=== PATIENT | female | born 1990 | race Caucasian/White ===

== ENCOUNTER 2017-06-01 20:02 | Emergency (ER) | payer OTHER ==
[2017-06-01 20:26] VITALS: BP 122/79; PULSE 82; TEMP 98.2; BMI 43.9
[2017-06-01] MEDS ORDERED: IBUPROFEN 600 MG TABLET (FP) PO ONE ×2 (21:30→21:32)
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
== END 2017-06-01 23:29 | disposition home or self-care (01) ==
LOC: SUPCPDRO 20:02 → JER 20:02
DX: M54.2 Cervicalgia (principal); M25.511 Pain in right shoulder; M25.512 Pain in left shoulder; V43.62XA Car passenger injured in collision with other type car in traffic accident, initial encounter; Y92.414 Local residential or business street as the place of occurrence of the external cause; Y93.89 Activity, other specified
CPT/HCPCS: 84703; 99281-25

== ENCOUNTER 2018-02-14 09:46 | Emergency (ER) | payer OTHER ==
[2018-02-14 09:55] VITALS: TEMP 98.3; BMI 45.8
--- NOTE | 2018-02-14 10:20 | PDOC ---
History of Present Illness - General Chief Complaint: Pain Stated Complaint: ABD PAIN, VOMITING Time Seen by Provider: 02/14/18 09:56 History Source: Patient Exam Limitations: No Limitations - History of Present Illness Initial Comments: 02/14/18 10:39 Patient is a 27-year-old female with no past medical history, who presents emergency department today with 1 week of lower abdominal pain. Patient states that her pain has been mostly in the left lower and right lower quadrants. She states that the pain is intermittently sharp. Patient admits to vomiting this morning. She states that she has also felt nauseous over the past week. She has not taken any medications to help her symptoms. Last menstrual cycle finished on 02/05/18. Patient is sexually active with one partner and does not use protection (condoms or control). Denies STD history. Patient states she took 2 tests yesterday at home which were negative. Denies fevers, chills, recent illness, recent travel, recent antibiotic use, chest pain, palpitations, shortness of breath, difficulty breathing, diarrhea, constipation , frequency, urgency and hematuria. Past History - Travel Traveled outside of the country in the last 30 days: No Close contact w/someone who was outside of country & ill: No - Past Medical History Allergies/Adverse Reactions: Allergies Allergy/AdvReac Type Severity Reaction Status Date / Time No Known Allergies Allergy Verified 02/14/18 09:53 Home Medications: Ambulatory Orders Ondansetron [Zofran Odt -] 4 mg SL TID #10 od.tablet 02/14/18 COPD: No - Reproductive History (#): 1 Para: 1 - Immunization History Immunization Up to Date: No - Suicide/Smoking/Psychosocial Hx Smoking History: Never smoked Have you smoked in the past 12 months: No Number of Cigarettes Smoked Daily: 0 Information on smoking cessation initiated: No Hx Alcohol Use: No Drug/Substance Use Hx: No Substance Use Type: Alcohol Review of Systems - Review of Systems Able to Perform ROS?: Yes Comments:: 02/14/18 10:38 CONSTITUTIONAL: Absent: fever, chills, diaphoresis, generalized weakness, malaise, loss of appetite HEENT: Absent: rhinorrhea, nasal congestion, throat pain, throat swelling, difficulty swallowing, mouth swelling, ear pain, eye pain, visual Changes CARDIOVASCULAR: Absent: chest pain, loss of consciousness, palpitations, irregular heart rate, peripheral edema RESPIRATORY: Absent: cough, shortness of breath, dyspnea with exertion, orthopnea, wheezing, stridor, hemoptysis GASTROINTESTINAL: Present: lower abdominal pain, nausea, vomiting. Absent: abdominal distension, diarrhea, constipation, melena, hematochezia GENITOURINARY: Present: frequency Absent: dysuria, urgency, hesitancy, hematuria, flank pain, genital pain MUSCULOSKELETAL: Absent: myalgia, arthralgia, joint swelling SKIN: Absent: rash, itching, pallor HEMATOLOGIC/IMMUNOLOGIC: Absent: easy bleeding, easy bruising, lymphadenopathy, frequent infections ENDOCRINE: Absent: unexplained weight gain, unexplained weight loss, heat intolerance, cold intolerance NEUROLOGIC: Absent: headache, focal weakness or paresthesias, dizziness, unsteady gait, seizure, mental status changes, bladder or bowel incontinence PSYCHIATRIC: Absent: anxiety, depression, suicidal or homicidal ideation, hallucinations. Is the patient limited Armenian proficient: No *Physical Exam - Vital Signs Last Vital Signs Temp Pulse Resp BP Pulse Ox 98.3 F 86 18 132/72 100 02/14/18 09:53 02/14/18 09:53 02/14/18 09:53 02/14/18 09:53 02/14/18 09:53 - Physical Exam Comments: 02/14/18 10:38 GENERAL: Well developed, well nourished. Awake and alert. No acute distress. Sitting comfortably in exam bed, breathing easily. HEENT: Normocephalic, atraumatic. PERRLA, EOMI. No conjunctival pallor. Sclera are non- icteric. Moist mucous membranes. Oropharynx is clear. NECK: Supple. Full ROM. No JVD. Carotid pulses 2+ and symmetric, without bruits. No thyromegaly. No lymphadenopathy. CARDIOVASCULAR: Regular rate and rhythm. No murmurs, rubs, or gallops. Distal pulses are 2+ and symmetric. PULMONARY: No evidence of respiratory distress. Lungs clear to auscultation bilaterally. No wheezing, rales or rhonchi. ABDOMINAL: Soft. Non-tender. Non-distended. No rebound or guarding. No Rovsing/conti's signs. No organomegaly. Normoactive bowel sounds. : External: No lesions or rashes noted. Normal appearing external genatalia. Bimanual exam: (+) CMT, b/l adenexal tenderness. Scant clear odorless discharge noted MUSCULOSKELETAL Normal range of motion at all joints. No bony deformities or tenderness. No CVA tenderness. EXTREMITIES: No cyanosis. No clubbing. No edema. No calf tenderness. SKIN: Warm and dry. Normal capillary refill. No rashes. No jaundice. NEUROLOGICAL: Alert, awake, appropriate. Cranial nerves 2-12 intact. No deficits to light touch and temperature in face, upper extremities and lower extremities. No motor deficits in the in face, upper extremities and lower extremities. Normoreflexic in the upper and lower extremities. Normal speech. Toes are down- going bilaterally. Gait is normal without ataxia. PSYCHIATRIC: Cooperative. Good eye contact. Appropriate mood and affect. 02/14/18 11:13 ED Treatment Course - LABORATORY CBC & Chemistry Diagram: 02/14/18 10:42 02/14/18 10:42 Medical Decision Making - Medical Decision Making 02/14/18 10:43 Patient is a 27-year-old female with no past medical history who presents emergency department today with lower abdominal pain for one week. Abdominal exam is unremarkable at this time. Abdomen is soft nontender with no reproducible tenderness, negative Rovsing and Conti signs. Slight suprapubic tenderness. Differential diagnosis includes but is not limited to ovarian cysts , PID, , UTI, viral illness. Less likely appendicitis or colitis at this time given lack of abdominal findings and fevers. Plan as follows: 1.basic labs, urine 2.IV fluids, Zofran, Pepcid 3.Transvaginal US 4.reevaluate 02/14/18 12:48 Ultrasound shows small simple cysts on ovaries bilaterally. No evidence of ovarian torsion or complex hemorrhagic cyst. Blood work is within normal limits. No leukocytosis or left shift. 3+ leukocytes on UA however sample appears to be contaminated with a large amount of epithelial cells. Negative preg. Given cervical motion tenderness on exam we'll prophylactically treat the patient for PID at this time. Patient received azithromycin and ceftriaxone. Return precautions given. 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 Patient presents all discharge instructions and all questions were answered. *DC/Admit/Observation/Transfer Diagnosis at time of Disposition: Pelvic pain - Discharge Dispostion Disposition: HOME Condition at time of disposition: Stable Admit: No - Prescriptions Prescriptions: Ondansetron [Zofran Odt -] 4 mg SL TID #10 od.tablet - Referrals Referrals: Estela Aguilar MD [Staff Physician] - - Patient Instructions Printed Discharge Instructions: DI for Pelvic Pain Additional Instructions: Your blood work and urine was normal today. Your not . Her ultrasound showed some simple cysts however this is most likely not the cause of your pain. Your treated prophylactically for gonorrhea and chlamydia today. Please take Zofran every 8 hours as needed for nausea. 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 If you do not have one a referral has been provided for you. Return to the emergency department if you have worsening pain, nausea, vomiting , fevers, chills, lightheadedness, dizziness, or any changes in your symptoms. - Post Discharge Activity Forms/Work/School Notes: Back to Work
[2018-02-14] MEDS ORDERED: SODIUM CHLORIDE 1,000 ML IV STA (10:21)
[2018-02-14] MEDS ORDERED: ONDANSETRON 4 MG/2 ML VIAL IVPUSH ONE (10:21)
[2018-02-14] MEDS ORDERED: FAMOTIDINE IV 20 MG/12 ML VIAL IVPB ONE (10:22)
[2018-02-14] MEDS ORDERED: ONDANSETRON 4 MG/2 ML VIAL ONE (10:26)
[2018-02-14] MEDS ORDERED: FAMOTIDINE 20 MG/50 ML IVPB 20 MG/50 ML MG IVPB ONE (10:26)
[2018-02-14 10:48] LABS: BASO % 0.6 % (0-2.0); EOS % 1.1 % (0-4.5); HEMATOCRIT 38.5 % (32.4-45.2); HEMOGLOBIN 12.7 GM/dL (10.7-15.3); LYMPH % 21.5 % (8-40); MCH 25.8 pg (25.7-33.7); MCHC 32.9 g/dl (32.0-36.0); MEAN CELL VOLUME 78.4 fl (80-96); MEAN PLT VOLUME 7.8 fl (7.5-11.1); MONO % 4.8 % (3.8-10.2); PLATELET COUNT 393 K/MM3 (134-434); RBC 4.91 M/mm3 (3.60-5.2); RDW 15.7 % (11.6-15.6); WHITE BLOOD COUNT 10.1 K/mm3 (4.0-10.0)
[2018-02-14 10:49] LABS: URINE APPEARANCE CLOUDY; URINE BILIRUBIN NEGATIVE (<2.0 mg/dL); URINE BLOOD NEGATIVE (NEGATIVE); URINE COLOR YELLOW; URINE GLUCOSE (UA) NEGATIVE (NEGATIVE); URINE KETONE NEGATIVE (NEGATIVE); URINE NITRITE NEGATIVE (NEGATIVE); URINE PROTEIN NEGATIVE (NEGATIVE); URINE UROBILINOGEN NEGATIVE mg/dL (0.2-1.0)
[2018-02-14 10:50] LABS: URINE LEUK ESTERASE 3+ (NEGATIVE)
[2018-02-14 11:03] LABS: INR 1.12 (0.82-1.09); PROTHROMBIN TIME (PATIENT) 12.6 SEC (9.98-11.88)
[2018-02-14] MEDS ORDERED: METOCLOPRAMIDE HCL INJECTION 10 MG/2 ML VIAL IVPB ONE (11:05)
[2018-02-14 11:09] LABS: EPI CELLS MANY /HPF (FEW); URINE BACTERIA RARE /hpf (NONE SEEN); URINE MUCUS RARE
[2018-02-14] MEDS ORDERED: METOCLOPRAMIDE HCL INJECTION 10 MG/2 ML VIAL ONE (11:09)
[2018-02-14 11:16] LABS: ALBUMIN 3.4 g/dl (3.4-5.0); ANION GAP 9 (8-16); BILIRUBIN,TOTAL 0.3 mg/dL (0.2-1.0); BLOOD UREA NITROGEN 8 mg/dL (7-18); CALCIUM 8.8 mg/dL (8.5-10.1); CHLORIDE 104 mmol/L (98-107); CO2 26 mmol/L (21-32); CREATININE 0.7 mg/dL (0.55-1.02); GLUCOSE,RANDOM 100 mg/dL (74-106); POTASSIUM 3.7 mmol/L (3.5-5.1); SGOT/AST 13 U/L (15-37); SGPT/ALT 17 U/L (12-78); SODIUM 139 mmol/L (136-145); TOT PROT 7.4 g/dl (6.4-8.2)
[2018-02-14 11:17] LABS: ALK PHOS 92 U/L (45-117)
[2018-02-14 11:34] LABS: LIPASE 85 U/L (73-393)
[2018-02-14] MEDS ORDERED: AZITHROMYCIN 500 MG TABLET PO ONE (13:23)
[2018-02-14] MEDS ORDERED: LIDOCAINE HCL 1%, 10 MG/ML (20ML VIAL) ONE (13:33)
[2018-02-14] MEDS ORDERED: AZITHROMYCIN 250 MG TABLET ONE (13:33)
[2018-02-14] MEDS ORDERED: cefTRIAXone SODIUM 1 GM VIAL ONE (13:33)
[2018-02-14 14:36] VITALS: BP 123/78; PULSE 77
== END 2018-02-14 14:00 | disposition home or self-care (01) ==
LOC: JER 09:46
PROC: 3E02329 Introduction of Other Anti-infective into Muscle, Percutaneous Approach (ICD-10-PCS; principal; 2018-02-14)
PROC: 3E0337Z Introduction of Electrolytic and Water Balance Substance into Peripheral Vein, Percutaneous Approach (ICD-10-PCS; 2018-02-14)
PROC: 3E033GC Introduction of Other Therapeutic Substance into Peripheral Vein, Percutaneous Approach (ICD-10-PCS; 2018-02-14)
PROC: 3E033GC Introduction of Other Therapeutic Substance into Peripheral Vein, Percutaneous Approach (ICD-10-PCS; 2018-02-14)
PROC: 3E033GC Introduction of Other Therapeutic Substance into Peripheral Vein, Percutaneous Approach (ICD-10-PCS; 2018-02-14)
DX: N73.8 Other specified female pelvic inflammatory diseases (principal)
CPT/HCPCS: 36415; 76830-TC; 80053; 81003; 81015; 83690; 84703; 85025; 85610; 87086; 87491; 87591; 96361; 96365; 96372; 96375; 99284-25; J7030

== ENCOUNTER 2019-12-04 21:52 | Emergency (ER) | payer OTHER ==
--- NOTE | 2019-12-04 22:46 | PDOC ---
History of Present Illness - General Stated Complaint: BLEEDING Time Seen by Provider: 12/04/19 22:45 History Source: Patient Exam Limitations: No Limitations Past History - Past Medical History Allergies/Adverse Reactions: Allergies Allergy/AdvReac Type Severity Reaction Status Date / Time No Known Allergies Allergy Verified 06/11/18 13:01 Home Medications: Ambulatory Orders Acetaminophen [Tylenol] 325 mg PO BID #10 capsule 06/11/18 Meclizine HCl 25 mg PO BID #8 tablet 06/11/18 COPD: No - Reproductive History (#): 1 Para: 1 - Immunization History Immunization Up to Date: No - Psycho Social/Smoking Cessation Hx Smoking History: Never smoked Have you smoked in the past 12 months: No Number of Cigarettes Smoked Daily: 0 Hx Alcohol Use: No Drug/Substance Use Hx: No Substance Use Type: Alcohol
[2019-12-04 23:04] VITALS: BP 126/72; PULSE 105; TEMP 98.1; BMI 47.9
--- NOTE | 2019-12-04 23:26 | PDOC ---
History of Present Illness - General Chief Complaint: Vaginal Bleeding Stated Complaint: BLEEDING Time Seen by Provider: 12/04/19 22:45 - History of Present Illness Initial Comments: 12/04/19 23:15 HPI: 29 y/o F 6-7 weeks gestation by LMP 10/22/19 presenting with painless vaginal bleeding that started 1.5hrs prior to arrival. She stated it started after wiping when using the toilet. Noted a single small clot. Since then she has noted blood only when wiping similar to her menstrual cycles; denies soaking through pad, underwear, or pants. Denies any pelvic/chest/abdominal/ back pain, LH, MARTINEZ, n/v, SOB, palpitations, dysuria. Established care with Can Maker 4 days ago where pelvic exam was performed and everything was normal. Has not started vitamins. PMHx: as noted above ROS: as noted SHx: Denies tobacco use; no alcohol use; no rec drugs Allergies: NKDA ROS: GENERAL/CONSTITUTIONAL: No fever or chills. No weakness. HEAD, EYES, EARS, NOSE AND THROAT: No change in vision. No ear pain or discharge. No sore throat. CARDIOVASCULAR: No chest pain or shortness of breath RESPIRATORY: No cough, wheezing, or hemoptysis. GASTROINTESTINAL: No nausea, vomiting, diarrhea or constipation. GENITOURINARY: No dysuria, frequency, or change in urination. MUSCULOSKELETAL: No joint or muscle swelling or pain. No neck or back pain. SKIN: No rash NEUROLOGIC: No headache, vertigo, loss of consciousness, or change in strength/ sensation. ENDOCRINE: No increased thirst. No abnormal weight change HEMATOLOGIC/LYMPHATIC: No anemia, easy bleeding, or history of blood clots. ALLERGIC/IMMUNOLOGIC: No hives or skin allergy. PE: GENERAL: Awake, alert, and fully oriented, no acute distress HEAD: No signs of trauma, normocephalic, atraumatic EYES: EOMI, sclera anicteric, conjunctiva clear ENT: Auricles normal inspection, hearing grossly normal, nares patent, oropharynx clear without exudates. Moist mucosa NECK: Normal ROM, no lymphadenopathy LUNGS: No increased work of breathing, symmetrical chest rise, clear to auscultation bilaterally, no wheezes, crackles or rhonchi HEART: Regular rate, regular rhythm, normal S1 and S2, no murmur, peripheral pulses 2+ and equal bilaterally. ABDOMEN: Soft, nondistended, nontender, normoactive bowel sounds. No guarding, no rebound. No masses. No CVAT MUSCULOSKELETAL: FROM NEUROLOGICAL: Cranial nerves II through XII grossly intact. Normal speech, normal gait, no focal sensorimotor deficits SKIN: Warm, Dry, normal turgor, no rashes or lesions noted Past History - Past Medical History Allergies/Adverse Reactions: Allergies Allergy/AdvReac Type Severity Reaction Status Date / Time No Known Allergies Allergy Verified 12/04/19 23:04 Home Medications: Ambulatory Orders Acetaminophen [Tylenol] 325 mg PO BID #10 capsule 06/11/18 Meclizine HCl 25 mg PO BID #8 tablet 06/11/18 COPD: No - Reproductive History (#): 1 Para: 1 - Immunization History Immunization Up to Date: No - Psycho Social/Smoking Cessation Hx Smoking History: Never smoked Have you smoked in the past 12 months: No Number of Cigarettes Smoked Daily: 0 Hx Alcohol Use: No Drug/Substance Use Hx: No Substance Use Type: Alcohol *Physical Exam - Vital Signs Last Vital Signs Temp Pulse Resp BP Pulse Ox 98.1 F 105 H 18 126/72 98 12/04/19 22:58 12/04/19 22:58 12/04/19 22:58 12/04/19 22:58 12/04/19 22:58 ED Treatment Course - RADIOLOGY Radiology Studies Ordered: Category Date Time Status TRANSVAGINAL US PREG [US] Stat Ultrasound 12/04/19 23:06 Ordered Medical Decision Making - Medical Decision Making 12/04/19 23:33 29 y/o F 6-7 weeks gestation by LMP 10/22/19 presenting with painless minimal vaginal bleeding that started 1.5hrs prior to arrival. VSS, AF. PE unremarkable. Pelvic exam deferred at this time given previously performed 4 days ago with [facility] without abnormalities as well as minimal bleeding today without any new pain or cramping. -t&s, beta hcg quant -tvus 12/04/19 23:35 will sign out to night team to followup labs and tvus; dispo appropriately Discharge - Discharge Information Problems reviewed: Yes Clinical Impression/Diagnosis: Vaginal bleeding affecting early Condition: Fair - Follow up/Referral - Patient Discharge Instructions Patient Printed Discharge Instructions: DI for Vaginal Bleeding During Additional Instructions: Additional Instructions: Please return to the emergency department with any new or worsening symptoms or concerns including worsening abdominal pain, significant amount of bleeding, persistent vomiting, fainting. Please follow up with your Meat Molder within 1 week for further evaluation and followup Please pickup your vitamins and take them as prescribed as soon as possible - Post Discharge Activity
--- NOTE | 2019-12-04 23:37 | PDOC ---
Attending Attestation - Resident Resident Name: Radha Muhammad - ED Attending Attestation I have performed the following: I have examined & evaluated the patient, The case was reviewed & discussed with the resident, I agree w/resident's findings & plan, Exceptions are as noted - HPI HPI: 12/05/19 00:03 29-year-old female presents stating she is last menstrual period October 22 noted some blood on the toilet tissue when she wiped tonight. She denies any pelvic cramping - Physicial Exam PE: 12/05/19 00:03 Obese 29-year-old female in no acute distress head normocephalic atraumatic Neck is supple Lungs are clear to auscultation CVS is regular rate and rhythm S1-S2 Abdomen is protuberant, soft nontender please refer to Dr. Muhammad's exam Skin warm and dry Neuro alert and oriented x3, ambulatory no gross focal neuro deficits 12/05/19 00:05 - Medical Decision Making 12/04/19 23:38 29-year-old female presents with some scant blood in toilet paper and states her last menstrual period was October 22 and she is . 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
== END 2019-12-05 03:11 | disposition home or self-care (01) ==
LOC: JER 21:52
DX: O26.891 Other specified pregnancy related conditions, first trimester (principal); O20.0 Threatened abortion; Z3A.01 Less than 8 weeks gestation of pregnancy
CPT/HCPCS: 36415; 76817-TC; 84702; 86850; 86900; 86901; 99282-25